=== PATIENT | male | born 1985 ===

== ENCOUNTER → 2019-08-27 | Outpatient (CLI) | payer SELFPAY ==
[2019-08-30 00:08] LABS: CHLAMYDIA TRACHOMATIS, NAA Negative (Negative); NEISSERIA GONORRHOEAE, NAA Negative (Negative)
== END | disposition home or self-care (01) ==
LOC: LAB 10:50 → LAB SHORT 10:50
PROVIDERS: Physician Assistant
DX: N34.1 Nonspecific urethritis (principal)
CPT/HCPCS: 87491; 87591